=== PATIENT | male | born 2000 | race Caucasian/White ===

== ENCOUNTER 2022-07-09 20:41 | Emergency (ER) | payer OTHER ==
[~2022-07-09] VITALS: Ht 200.7 cm; Wt 70.3 kg
[2022-07-09 21:02] VITALS: BP 127/87
== END 2022-07-09 23:03 | disposition home or self-care (01) ==
LOC: ER 20:41
DX: S83.92XA Sprain of unspecified site of left knee, initial encounter (principal); V86.65XA Passenger of 3- or 4- wheeled all-terrain vehicle (ATV) injured in nontraffic accident, initial encounter
CPT/HCPCS: 29505; 73562-LT; 99283-25

== ENCOUNTER → 2022-09-13 | Outpatient (CLI) | payer OTHER ==
[2022-09-14 07:10] LABS: HBSAG SCREEN Negative (Negative); HCV ANTIBODY Non Reactive (Non Reactive); HIV AB/P24 AG SCREEN Non Reactive (Non Reactive)
== END | disposition home or self-care (01) ==
LOC: LAB 15:58 → LAB SHORT 15:58
PROVIDERS: Chiropractor
DX: Z20.9 Contact with and (suspected) exposure to unspecified communicable disease (principal)
CPT/HCPCS: 84460; 86317; 86803; 87340; 87389